=== PATIENT | female | born 1975 ===

== ENCOUNTER 2017-03-08 11:05 | Day surgery (SDC) | payer MEDICAID ==
--- NOTE | 2017-03-04 16:13 | PDGENHP ---
History and Physical - Chief Complaint Right Hip Pain - History of Present Illness 1. Right JOSE November 1999 2. ~~Right total hip arthroplasty 2013 3. ~~Right Iliopsoas tendinopathy 4. ~~Left Femoroacetabular Impingement with labral tear 5. ~~Left Hip Dysplasia 6. ~~Bilateral Greater Trochanter bursitis 7. ~~Hypermobility syndrome HISTORY OF PRESENT ILLNESS: Beniis a 41 y.o.~active female~who I have had the pleasure to consult on today.~I have enjoyed meeting her. She~lives in [place]. ~Beniis currently unemployed; she is currently under workman's comp and applying for SSDI. ~She~ is single; she~has no~children. ~Benienjoys walking, hiking, swimming. Yonys left~hip pain started several years ago, with no~recalled trauma or injury, and with no~previous complaints.~Benidoes not have~a known history of hip dysplasia. She had a Right JOSE in November [address] Gr in [place]. ~She did well for 12~years but ended up needing a total hip replacement in 2013, Dr. Ornelas at [facility]. She has had weakness and pain in Right hip since having the total hip replacement. Presentation today is of~anterior, posterior, lateral bilateral~hip pain. ~The hip does not~wake her~at night and does~click and catch on her. Sitting can be a real struggle~for her. Benidoes~report suffering from lower back pain episodes. Benihas~participated in physical therapy (On and off for 10 years; last couple of years specifically for Left hip)~and has~tried other conservative measures including cortisone Left hip injection (2015; no immediate or shelter relief); RIGHT Iliopsoas injection (unclear date)~, dry needling and massage therapy. She~has not~received sufficient symptomatic improvement. Benihas~utilized medication for pain management, including Percocet and Amitriptyline, Diclofenac, Gabapentin (prescribed by PEPITO UGARTE). Benihas used medication since June 2014. Beniis having problems with her RIGHT hip status post Total joint replacement. Beniunderstands that she~has a hip and pelvis problem which should be researched and wishes to get a better understanding of her~hip status, followed by an establishment of a treatment strategy, hoping she~would be able to get back to her~well being active life. History: Past medical history: ~ Patient ~has a past medical history of Anxiety; Depression; Headache; Hip dysplasia; Hypermobility syndrome; and IBS (irritable bowel syndrome). Relevant familial history: Second cousin with EDS ~~~~~~~~~~~~~~~~~~~~~~~~~~~~~~~~~~~~Father/Mother: with joint laxity Past surgical history: No. Surgery Anesthesia 1 Right Hip scope/JOSE General 2 Right Total Hip Replacement General Bazandenies problematic issues with general anesthesia in the past. I have reviewed, verified and agree with the past medical, surgical, family and social history. Current Medications:Amirahas a current medication list which includes the following prescription(s): albuterol, cetirizine, diclofenac submicronized, gabapentin, amitriptyline hcl, diclofenac sodium, miscellaneous medical supply, and oxycodone-acetaminophen. ALLERGIES:Amirais allergic to adhesive and ultram [tramadol]. Objective: Physical Examination: Beniis 5~feet 3~inches tall and weighs~190~Lbs. Beniis AAO x3; she~is well-nourished, in NAD. Skin is warm and dry. ~Breathing is non-labored. ~CV with RRR by pulse. Abdomen is soft, NTND. Currently, she~walks with a abnormal antalgic~gait. Trendelenburg sign is negative~and proprioception~is absent, both~side. She~presents~with severe~signs of joint laxity.~Beightons Score: 7 Lower spine examination is negative~for sciatic or femoral nerve irritation with negative~SLR &~femoral stretch tests. Range of motion of the spine is normal~for flexion, extension, and rotations, with~associated pain bilateral lumbar. Strength, Sensation and pulses are normal - bilaterally Ankles and knees exams are normal~and no~mal-alignment is evident. Thigh circumference is symmetric~with no evidence for muscle atrophy~on both~ sides. Hip ROM (degrees): FL ER At 90~hip FL IR At 90~hip FL AB AD EX IR Neutral hip ER Neutral hip R 95 45 25 35 10 10 50 45 L 100 50 20 35 10 10 40 55 Specific hip and pelvis tests: Quadrant ALEKSANDAR Roll Add. Longus R Not Tested Not Tested Extra articular++ / IP origin +++ L +++ Negative IP + +++ Glut. Med ITB Pos. Imp R Negative 4+/5 strength Negative 4+/5 strength Negative L Negative 4+/5 strength Negative 4+/5 strength Negative Squeeze test measured weak Bony Symphysis pubis is painful~to touch while concentric activity of the rectus abdominis, does~produce pain at its insertion. Ilio Psos specific tests: ~Extreme weakness and pain HF has no pain, weak both hips. RIGHT/LEFT~capsule tenderness Greater trochanteric burse is painful~on both hips. L>>R Piriformis tests: FAIR is negative, with no~local signs of neuritis related to sciatic nerve. SIJs examination is produces pain on both sides ~L>>>R~with normal~ALEKSANDAR in relation and local tenderness. Hamstrings tests are negative~functional contraction and negative~tendinopathy both hips. Imaging: Radiology studies which I~have personally reviewed, analyzed and measured are below: XR: AP of the hip and pelvis: Performed in a good~technique Coccyx at the level of the~pubic symphysis. 0~degrees [place]~Lines are preserved. Minimal~Pathological signs are seen in the Symphysis Pubis. Minimal~Pathological signs are seen at the Ischial~tuberosity. ~ Specific measurements show: NSA~ LCE Sourcil~Angle Sharp's angle Lat. Cam Lat. Pincer C.Over~sign Head~Coverage % ATDmm R N/A N/A N/A N/A N/A N/A N/A N/A N/A L N 16 19 43 + - 12-12:30 69 N Pos. wall sign ISS NAD ~~Dysplasia Comments R N/A N/A N/A N/A L Negative Negative 17.9~mm ++ Sclerosis Sup. Lat. OA Cysts Joint Space-WBZ Joint Space-Medial R N/A N/A N/A N/A N/A L Negative Negative Negative 4.9~mm 4.4~mm X Table lateral: Anterior cam lesion is seen~on the left hip. Alpha Angle: ~ Left 71~degrees Impression and plan:Amira Bazanis a 41 y.o.~active female~suffering from symptomatic bilateral~hip pain due to Right Iliopsoas tentinopathy (status post Right TORRES); Left~ Femoroacetabular impingement (HAY) Cam type, with~resultant labral tear and Left ~Hip Dyplasia causing significant disability to her~and altering~her~sport and life activities. Physical examination, imaging, and her~story correspond with the diagnosis mentioned above. At this point with her extreme weakness and pain associated with ongoing RIGHT hip pain after the total hip arthroplasty, addressing issues with the LEFT hip are not appropriate. It would not make any sense to indicate surgical procedure to her left side prior to getting her right side pain free or at least functional. We are referring her to an ultrasound guided cortisone injection to the RIGHT Iliopsoas at [facility] with MK at [facility]. Beniwill review the info presented. Beniis going to contact us after completing her~Iliopsoas injection. ~We asked her to document the progression of her pain and relief after the injection and make a follow up appointment 3 weeks after getting the injection. Beniis happy with this plan. I wish~Beniall the best, ~~ TRUNG Henry History Information - Allergies/Home Medication List Allergies/Adverse Reactions: Latex, Natural Rubber Allergy (Intermediate, Verified 02/18/17 12:10) adhesive tape Allergy (Mild, Verified 02/18/17 12:11) BP cuff Allergy (Mild, Uncoded 02/18/17 12:12) Home Medications: AMITRIPTYLINE HCL HS 02/18/17 [Last Taken Unknown] Albuterol PRN 02/18/17 [Last Taken Unknown] Diclofenac Sodium TID 02/18/17 [Last Taken Unknown] Gabapentin TID 02/18/17 [Last Taken Unknown] Herbals/Supplements -Info Only 02/18/17 [Last Taken Unknown] Percocet 5-325 mg Tablet TID PRN 02/18/17 [Last Taken Unknown] I have personally reviewed and updated: medical history - Social History Smoking Status: Never smoked Review of Systems Review of Systems: Physical Exam Physical Exam:
[2017-03-08] MEDS ORDERED: PREGABALIN 150 MG CAP PO ONE (11:43)
[2017-03-08] MEDS ORDERED: ceFAZolin 2 GM/DEXTROSE 100 ML IV ONE (11:43)
[2017-03-08] MEDS ORDERED: ACETAMINOPHEN 500 MG TAB PO ONE (11:43)
[2017-03-08] MEDS ORDERED: LR 1,000 ML IV ONE (11:44)
[2017-03-08] MEDS ORDERED: LIDOCAINE 1% 2 ML INJ ID PRN (11:44)
--- NOTE | 2017-03-08 12:19 | PDANEPAE ---
ANE History of Present Illness 41 year old female with R hip iliopsoas contracture ANE Past Medical History Past Medical History: No cough/fever x2 weeks. Nasal congestion about 1 1/2-2 weeks ago now resolved. - Cardiovascular History Hx Hypertension: No Hx Arrhythmias: No Hx Chest Pain: No Hx Coronary Artery / Peripheral Vascular Disease: No Hx CHF / Valvular Disease: No Hx Palpitations: No - Pulmonary History Hx COPD: No Hx Asthma/Reactive Airway Disease: No Hx Recent Upper Respiratory Infection: No Hx Oxygen in Use at Home: No Hx Sleep Apnea: No Sleep Apnea Screening Result - Last Documented: Negative Pulmonary History Comment: Mild asthma uses albuterol inhaler 1-3 X/month - Neurologic History Hx Cerebrovascular Accident: No Hx Seizures: No Hx Dementia: No - Endocrine History Hx Diabetes: No - Renal History Hx Renal Disorders: No - Liver History Hx Hepatic Disorders: No - Neurological & Psychiatric Hx Hx Neurological and Psychiatric Disorders: No - Cancer History Hx Cancer: No - Congenital Disorder History Hx Congenital Disorders: No - GI History GERD: no Hx Gastrointestinal Disorders: No - Other Health History Other Health History: Endometriosis - Surgical History Prior Surgeries: R total hip 2014. tonsillectomy 2014 ANE Review of Systems Review of Systems: - Exercise capacity METS (RN): 5 METS ANE Patient History - Allergies Allergies/Adverse Reactions: Latex, Natural Rubber Allergy (Intermediate, Verified 02/18/17 12:10) adhesive tape Allergy (Mild, Verified 02/18/17 12:11) tramadol [From Ultram] Adverse Reaction (Mild, Verified 03/08/17 11:55) BP cuff Allergy (Mild, Uncoded 02/18/17 12:12) - Home Medications Home medications: home medication list seen and reviewed Home Medications: AMITRIPTYLINE HCL HS 02/18/17 [Last Taken 03/01/17] Albuterol PRN 02/18/17 [Last Taken 03/01/17] Diclofenac Sodium TID 02/18/17 [Last Taken 03/01/17] Gabapentin TID 02/18/17 [Last Taken 03/05/17] Herbals/Supplements -Info Only 02/18/17 [Last Taken 03/01/17] Percocet 5-325 mg Tablet TID PRN 02/18/17 [Last Taken 03/07/17] - NPO status NPO Status: no food or drink >8 hours NPO Since - Liquids (Date): 03/08/17 NPO Since - Liquids (Time): 09:30 NPO Since - Solids (Date): 03/07/17 NPO Since - Solids (Time): 22:00 - Anes Hx Anes Hx: no prior problems - Smoking Hx Smoking Status: Never smoked Marijuana use: No - Family Anes Hx Family Hx Anesthesia Complications: NEG ANE Labs/Vital Signs - Vital Signs Blood Pressure: 141/97 Heart Rate: 91 Respiratory Rate: 14 O2 Sat (%): 97 Height: 160.02 cm Weight: 83.915 kg ANE Physical Exam - Airway Neck exam: FROM Mallampati Score: Class 2 Mouth exam: normal dental/mouth exam - Pulmonary Pulmonary: clear to auscultation - Cardiovascular Cardiovascular: regular rate and rhythym - ASA Status ASA Status: II ANE Anesthesia Plan Anesthesia Plan: general endotracheal anesthesia
[2017-03-08] MEDS ORDERED: BUPIVACAINE 0.25% 30 ML SDV ONE (12:43)
[2017-03-08] MEDS ORDERED: fentaNYL 100 MCG/2 ML INJ ONE ×3 (12:46→14:46)
[2017-03-08] MEDS ORDERED: PROPOFOL/EMULSION 500 MG/50 ML BOTTLE IV ONE ×2 (12:46→13:56)
[2017-03-08] MEDS ORDERED: LIDOCAINE 2% 5 ML SDV ONE (12:47)
[2017-03-08] MEDS ORDERED: DEXAMETHASONE 4 MG/ML VIAL ONE (12:47)
[2017-03-08] MEDS ORDERED: ROCURONIUM 50 MG/5 ML VIAL ONE (12:47)
[2017-03-08] MEDS ORDERED: ONDANSETRON 4 MG/2 ML VIAL ONE (14:06)
[2017-03-08] MEDS ORDERED: KETOROLAC 30 MG/1 ML SDV ONE (14:10)
[2017-03-08] MEDS ORDERED: ALBUTEROL 3 ML DEYVIAL IH PRN (14:26)
[2017-03-08] MEDS ORDERED: LR 500 ML IV PRN (14:26)
[2017-03-08] MEDS ORDERED: NALOXONE HCL 0.4 MG/ML INJ IVP PRN (14:26)
[2017-03-08] MEDS ORDERED: OXYCODONE/APAP 5/325 TAB PO PRN (14:26)
[2017-03-08] MEDS ORDERED: PROMETHAZINE HCL 25 MG/ML INJ IVP PRN (14:26)
[2017-03-08] MEDS: fentaNYL 100 MCG/2 ML INJ IVP PRN ×2 (14:48→15:17)
[2017-03-08 14:59] VITALS: PULSE 97
[2017-03-08] MEDS ORDERED: OXYCODONE/APAP 5/325 TAB ONE (15:21)
[2017-03-08 15:59] VITALS: RESP 16
[2017-03-08 18:50] VITALS: TEMP 99.7
[2017-03-08 18:54] VITALS: BP 132/82; O2SAT 93
== END 2017-03-08 18:32 | disposition home or self-care (01) ==
LOC: FSGY 11:05
PROVIDERS: ATTEND Orthopaedic Surgery Sports Medicine
PROC: 0SN90ZZ Release Right Hip Joint, Open Approach (ICD-10-PCS; principal; 2017-03-08 12:30)
DX: M76.11 Psoas tendinitis, right hip (principal); Z96.641 Presence of right artificial hip joint; M25.852 Other specified joint disorders, left hip; M70.61 Trochanteric bursitis, right hip; M70.62 Trochanteric bursitis, left hip; M35.7 Hypermobility syndrome
CPT/HCPCS: 29999; 76001; C1769; J0171; J0690; J1100; J1885; J2405; J2704; J3010